=== PATIENT | female | born 1985 | race Caucasian/White ===

== ENCOUNTER 2020-09-19 05:16 | Day surgery (SDC) | payer OTHER ==
[~2020-09-19 05:16] MED LIST: ACETAMINOPHEN 325 MG TABLET PO PRN; IBUPROFEN 800 MG in NORMAL SALINE 250 ML IV PRN; LACTATED RINGERS 1000 ML IV PRN; VANCOMYCIN HCL 1,000 MG in DEXTROSE 5%-WATER 250 ML IV PRN
[2020-09-19] MEDS ORDERED: ACETAMINOPHEN 325 MG TABLET ONE (05:49)
[2020-09-19] MEDS ORDERED: FENTANYL CITRATE INJ/PF 100 MCG/2 ML AMPUL ONE (06:47)
[2020-09-19] MEDS ORDERED: MIDAZOLAM 2 MG/2 ML INJ ONE (06:48)
[2020-09-19] MEDS ORDERED: PROPOFOL INJ 200 MG/20 ML VIAL IV ONE ×2 (06:48→07:16)
[2020-09-19] MEDS ORDERED: SCOPOLAMINE HYDROBROMIDE 1.5 MG PATCH.TD72 TD PRN (06:49)
[2020-09-19] MEDS ORDERED: SCOPOLAMINE HYDROBROMIDE 1.5 MG PATCH.TD72 ONE (06:52)
[2020-09-19] MEDS ORDERED: BUPIVACAINE HCL 0.25 % INJ/PF (2.5 MG/1 ML) 30 ML VIAL ONE (07:07)
[2020-09-19] MEDS ORDERED: LIDOCAINE 1% INJ-PF (10 MG/ML) 30 ML SDV ONE (07:07)
[2020-09-19] MEDS ORDERED: ONDANSETRON HCL INJ/PF 4 MG/2 ML SDV ONE (07:15)
[2020-09-19] MEDS ORDERED: DEXAMETHASONE SOD PHOSPHATE INJ 4 MG/1 ML VIAL ONE (07:15)
[2020-09-19] MEDS ORDERED: MORPHINE SULFATE 10 MG/ML INJ IV PRN (07:51)
[2020-09-19] MEDS ORDERED: ONDANSETRON HCL INJ/PF 4 MG/2 ML SDV IV PRN (07:51)
[2020-09-19] MEDS ORDERED: MEPERIDINE HCL/PF INJ 25 MG/1 ML DISP.SYRIN IV PRN (07:51)
[2020-09-19] MEDS ORDERED: FENTANYL CITRATE INJ/PF 100 MCG/2 ML AMPUL IV PRN ×3 (07:51)
[2020-09-19] MEDS ORDERED: PROMETHAZINE HCL INJ 25 MG/1 ML VIAL IV PRN (07:51)
[2020-09-19] MEDS ORDERED: DIPHENHYDRAMINE HCL 50 MG/ML VIAL IV PRN (07:51)
[2020-09-19] MEDS ORDERED: DEXMEDETOMIDINE INJ 80 MCG/20 ML VIAL IV ONE (08:25)
--- NOTE | 2020-09-19 08:34 | Discharge Summary ---
Discharge Summary (SDC) - Discharge Final Diagnosis: pilar cyst Date of Surgery: 09/19/20 Discharge Date: 09/19/20 Condition: Stable Treatment or Instructions: D/c home. Diet: as tolerated. Activity; nonstrenuous. f/u 7-10 days. Elgin 5/325 mg PO q6 hrs PRN pain. Prescriptions: Hydrocodone/Acetaminophen [Elgin 5-325 mg Tablet] 1 tab PO Q6HP PRN #14 tablet PRN Reason: For Pain Referrals: FAWAD BUCKNER MD [Primary Care Provider] - Discharge Diet: As Tolerated Respiratory Treatments at Home: Deep Breathing/Coughing, Incentive Spirometer Discharge Activity: Balance Activity w/Rest Home Care Assistance: None Needed Report the Following to Your Physician Immediately: Shortness of Breath, Nausea, Vomiting, Increase in Pain, Fever over 101 Degrees, Unusual Bleeding, Redness, Swelling, Warmth
--- NOTE | 2020-09-19 08:37 | Operative Report ---
Nonrecallable Operative Report DATE OF SURGERY: 09/19/20 PREOPERATIVE DIAGNOSIS: 6cm pilar cyst POSTOPERATIVE DIAGNOSIS: smae as above OPERATION: 1. Excision of a 6 cm pilar cyst. 2. Intermediate closure of a 6 cm scalp incision. SURGEON: GINO OLIVARES ANESTHESIA: LMAC TISSUE REMOVED OR ALTERED: 6 cm pilar cyst. COMPLICATIONS: None apparent ESTIMATED BLOOD LOSS: Minimal PROCEDURE: Drain/implants: None. Procedure in detail: After informed consent was obtained, the patient was brought into the operating room and laid in the left lateral decubitus position. The area of the posterior scalp was prepped and draped in a normal sterile fashion. An elliptical incision was created over the pilar cyst. Dissection was carried through the subcutaneous tissues using sharp dissection. The cyst was excised completely from the scalp. The cyst was measured at 6 cm in total diameter. It was passed off the field and sent to pathology. Hemostasis was achieved using electrocautery and 3-0 Vicryl suture ligatures. After hemostasis was ensured, the subcutaneous tissues were closed using 3-0 Vicryl suture in sim ple interrupted fashion. The overlying skin was closed using 4-0 Vicryl Rapide suture in subcuticular fashion. Dressings were then placed, and the procedure was concluded. All sponge, instrument, and needle counts were correct x2. Condition: Stable.
[2020-09-19] MEDS ORDERED: HYDROCODONE/ACETAMINOPHEN 10-325 MG TABLET PO PRN (10:13)
[2020-09-19 10:33] VITALS: BP 121/75
== END 2020-09-19 10:00 | disposition home or self-care (01) ==
LOC: OROUT 05:16
PROVIDERS: ATTEND Surgery
DX: L72.12 Trichodermal cyst (principal); Z01.812 Encounter for preprocedural laboratory examination; Z20.822 Contact with and (suspected) exposure to COVID-19; J45.909 Unspecified asthma, uncomplicated; I10 Essential (primary) hypertension; K21.9 Gastro-esophageal reflux disease without esophagitis; Z79.899 Other long term (current) drug therapy
CPT/HCPCS: 87635; 81025; 88304 ×2; 11426; J2250; J1100; J3010; J3490 ×2; J2405; J7060; J2704; J3370; C9803; 300; J1741; J7050